=== PATIENT | female | born 1970 | race Hispanic/Latino ===

== ENCOUNTER → 2020-07-07 | Outpatient (CLI) | payer BC | END | disposition home or self-care (01) | LOC: RAH 08:37 | PROVIDERS: ATTEND Physical Medicine & Rehabilitation | DX: M47.817 Spondylosis without myelopathy or radiculopathy, lumbosacral region (principal); M54.2 Cervicalgia | CPT/HCPCS: 72040; 72100 ==

== ENCOUNTER 2021-03-02 05:51 | Day surgery (SDC) | payer BC ==
[2021-03-01 10:31] VITALS: BP 152/82
[2021-03-02] VITALS (11 sets, daily range): BP systolic 118–154; BP diastolic 66–90
[~2021-03-02] VITALS: Ht 152.4 cm; Wt 65.7 kg
[~2021-03-02 05:51] MED LIST: ATOR20TA65 PO; INSU100V12 SQ; METF-446 PO; MONT10TA32 PO
[2021-03-02] MEDS ORDERED: 0.9%NACL 1000ML 1,000 ML IV ONE (06:22)
[2021-03-02] MEDS ORDERED: CLINDAMYCIN IVPB 900MG/50ML 50 ML IV ONE (06:22)
[2021-03-02] MEDS ORDERED: LIDOCAINE HCL-MPF 0.5% 50ML VIAL IJ ONE (06:55)
[2021-03-02] MEDS ORDERED: MIDAZOLAM HCL 1 MG/ML 2ML VIAL ONE ×2 (06:57→08:14)
[2021-03-02] MEDS ORDERED: FENTANYL CITRATE PF 50 MCG/1 ML 2ML VIAL ONE ×2 (06:57→07:52)
[2021-03-02] MEDS ORDERED: LOSA25TA41 PO (07:06)
[2021-03-02] MEDS ORDERED: ALBUTEROL IH (07:06)
[2021-03-02] MEDS ORDERED: IRON PO (07:06)
[2021-03-02] MEDS ORDERED: CLINDAMYCIN IVPB 900MG/50ML 50 ML IV SCH (09:00)
== END 2021-03-02 09:35 | disposition home or self-care (01) ==
LOC: DAH 05:51
PROVIDERS: ATTEND Neurological Surgery
DX: G56.01 Carpal tunnel syndrome, right upper limb (principal); Z20.822 Contact with and (suspected) exposure to COVID-19; J45.909 Unspecified asthma, uncomplicated; I10 Essential (primary) hypertension; E11.9 Type 2 diabetes mellitus without complications; M06.9 Rheumatoid arthritis, unspecified; Z98.891 History of uterine scar from previous surgery; Z98.890 Other specified postprocedural states; Z98.49 Cataract extraction status, unspecified eye; Z90.49 Acquired absence of other specified parts of digestive tract; Z79.84 Long term (current) use of oral hypoglycemic drugs; Z88.0 Allergy status to penicillin; Z79.899 Other long term (current) drug therapy
CPT/HCPCS: 64721; 82948 ×2; 87635; A4215 ×2; A4216; A4221; A4222; A4223; A4663; C9803; J2250 ×2; J3010 ×2; J3490 ×2; J7030

== ENCOUNTER 2021-04-18 06:06 | Day surgery (SDC) | payer BC ==
[2021-04-17 08:53] VITALS: BP 141/65
[~2021-04-18] VITALS: Ht 152.4 cm; Wt 67.4 kg
[2021-04-18] VITALS (15 sets, daily range): BP systolic 123–152; BP diastolic 64–81
[2021-04-18] MEDS: CLINDAMYCIN IVPB 900MG/50ML 50 ML IV SCH ×2 (05:00→08:05)
[~2021-04-18 06:06] MED LIST changes: +0.9%NACL 1000ML 1,000 ML IV ONE; +ALBUTEROL IH; +IRON PO; +LOSA25TA41 PO; +MONT-39 PO; -MONT10TA32 PO
[2021-04-18] MEDS ORDERED: LIDOCAINE HCL-MPF 0.5% 50ML VIAL IJ ONE (06:51)
[2021-04-18] MEDS ORDERED: MIDAZOLAM HCL 1 MG/ML 2ML VIAL ONE (06:52)
[2021-04-18] MEDS ORDERED: FENTANYL CITRATE PF 50 MCG/1 ML 2ML VIAL ONE ×3 (06:53→08:27)
== END 2021-04-18 10:25 | disposition home or self-care (01) ==
LOC: DAH 06:06
PROVIDERS: ATTEND Neurological Surgery
DX: G56.02 Carpal tunnel syndrome, left upper limb (principal); Z20.822 Contact with and (suspected) exposure to COVID-19; I10 Essential (primary) hypertension; E11.9 Type 2 diabetes mellitus without complications; M06.9 Rheumatoid arthritis, unspecified; Z90.49 Acquired absence of other specified parts of digestive tract; Z98.890 Other specified postprocedural states; Z79.84 Long term (current) use of oral hypoglycemic drugs; Z79.899 Other long term (current) drug therapy; Z88.0 Allergy status to penicillin
CPT/HCPCS: 64721; 82948 ×2; 87635; A4215; A4221; A4222; A4223; A4663; C9803; J2250; J3010 ×3; J3490 ×2; J7030

== ENCOUNTER → 2021-07-03 | Outpatient (CLI) | payer BC, OTHER ==
[~2021-07-03] MED LIST changes: -0.9%NACL 1000ML 1,000 ML IV ONE
== END | disposition home or self-care (01) ==
LOC: RAH 09:26
PROVIDERS: ATTEND Physician Assistant
DX: M54.2 Cervicalgia (principal)
CPT/HCPCS: 72050

== ENCOUNTER → 2023-11-12 | Outpatient (CLI) | payer OTHER | END | disposition home or self-care (01) | LOC: RAH 15:52 | PROVIDERS: ATTEND Internal Medicine | DX: M47.812 Spondylosis without myelopathy or radiculopathy, cervical region (principal); M19.041 Primary osteoarthritis, right hand; M25.841 Other specified joint disorders, right hand | CPT/HCPCS: 72040; 73120 ==

== ENCOUNTER → 2023-11-22 | Outpatient (CLI) | payer OTHER | END | disposition home or self-care (01) | LOC: RAH 14:34 | PROVIDERS: ATTEND Internal Medicine | DX: M19.042 Primary osteoarthritis, left hand (principal) | CPT/HCPCS: 73120 ==